=== PATIENT | male | born 1990 | race Two or more races ===

== ENCOUNTER 2025-03-05 13:51 | Emergency (ER) | payer OTHER ==
[~2025-03-05] VITALS: Ht 180.3 cm; Wt 93.0 kg
[2025-03-05 14:53] LABS: PLATELET COUNT (AUTO) 239 K/uL (152-348); RED BLOOD CELL COUNT(AUTO) 4.61 MIL/uL (4.06-5.63); RED CELL DISTRIBUTION WIDTH 14.0 % (12.1-16.2); WHITE BLOOD COUNT (AUTO) 8.8 K/uL (3.6-10.2)
[2025-03-05 15:01] LABS: CREATININE 0.6 mg/dL (0.6-1.3); SODIUM SERUM 140 mmol/L (136-145); UREA NITROGEN, BLOOD 11 mg/dL (7-18)
[2025-03-05 15:06] LABS: ASPARTATE AMINOTRANSFERASE 16 U/L (15-37); TOTAL PROTEIN, SERUM 6.8 g/dL (6.4-8.2)
[2025-03-05 15:57] LABS: *BILIRUBIN,URIN NEGATIVE (NEGATIVE); *BLOOD, URINE NEGATIVE (NEGATIVE); *CLARITY,URINE CLEAR (CLEAR); *COLOR,URINE YELLOW (YELLOW); *KETONES,URINE NEGATIVE (NEGATIVE); *PROTEIN,URINE NEGATIVE (NEGATIVE); *UROBILINOGEN,URINE 0.2 E.U./dl (NORMAL); LEUKOCYTE ESTERASE ,URINE NEGATIVE (NEGATIVE); NITRITE, URINE NEGATIVE (NEGATIVE); UGLUCOSE NEGATIVE (NEGATIVE)
[2025-03-05 16:00] VITALS: BP 122/69
[2025-03-05] MEDS ORDERED: LORA-259 PO (16:29)
[2025-03-05 16:42] VITALS: BP 130/73; O2SAT 100
== END 2025-03-05 16:44 | disposition home or self-care (01) ==
LOC: ER 13:59
DX: R00.0 Tachycardia, unspecified (principal); R42 Dizziness and giddiness; R07.2 Precordial pain; R10.9 Unspecified abdominal pain; F17.210 Nicotine dependence, cigarettes, uncomplicated; Z86.018 Personal history of other benign neoplasm
CPT/HCPCS: 36415; 71045; 83735; 84484; 85025; A4606; A4663